=== PATIENT | male | born 1935 | race Caucasian/White ===

== ENCOUNTER → 2018-03-26 | Outpatient (CLI) | payer MEDICARE, BC ==
[~2018-03-26] MED LIST: ALEVE 220MG220 MG PO; ASPIRIN 81M81 MG/TA2 PO; ASPIRIN E.C. 8181 MG PO; COLACE 100100 MG/CAP PO; FLOMAX 0.40.4 MG/CAP PO; FLOMAX0.4 MG PO; IBUPROFEN800 MG PO; KAOPECTATE240 MG PO; LEVOTHYROXIN0.075 MG PO; MOTRIN 800800 MG/TAB PO; NORCO 325 MG-51 TAB PO; SYNTHROID0.075 MG/T PO; TRAVATAN 2.5 M2.5 ML OP; TRAVATAN Z 2.52.5 ML OU; [UNRECOGNIZED DRUG - OTHER] PO
== END ==
LOC: COL.LAB 10:16
DX: Z01.812 Encounter for preprocedural laboratory examination (principal)